=== PATIENT | male | born 1990 | race Caucasian/White ===

== ENCOUNTER → 2019-04-09 12:03 | Outpatient (CLI) | payer BC, SELFPAY ==
--- NOTE | 2019-04-09 12:15 | CT_ITS ---
PROCEDURE: CT LUMBAR SPINE WO/W CON CLINICAL HISTORY: LBP COMPARISON: No exams were available for comparison TECHNIQUE: Axial images obtained with sagittal and coronal reformats. All CT scans at the facility use one or more dose reduction, viz: automated exposure control, ma/kV adjustment per patient size (including targeted exams where dose is matched to indication, i.e. head), or iterative reconstruction technique. FINDINGS: There is no acute fracture or dislocation. There is broad-based disc bulge L5-S1 with a small component of focal central disc protrusion possibly a tiny herniation. This is causing mild convex extrinsic mass effect on the thecal sac but there is no central canal stenosis. 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 Additionally there is expansion of the bilateral sacral foramina appearing due to perineural cysts. IMPRESSION: Degenerative disc bulge L5-S1 with small focal central disc protrusion likely herniation. No associated central canal or foraminal stenosis. Expansion of bilateral sacral foramina and L5-S1 neural foramina appearing due to perineural cysts. MRI may be useful for further imaging assessment. Dictated by: Venu Dumont 04/09/2019 12:54 Electronically signed by Venu Dumont in [facility] 04/09/2019 12:54
== END ==
PROVIDERS: PCP Nurse Practitioner; Visit Provider Nurse Practitioner
DX: M54.5 Low back pain (principal)
CPT/HCPCS: 72133

== ENCOUNTER 2019-05-04 08:00 | Outpatient (RCR) | payer BC, SELFPAY | END 2019-05-11 15:23 | disposition home or self-care (01) | LOC: PT.CARL 08:00 | PROVIDERS: PCP Nurse Practitioner; Visit Provider Nurse Practitioner | DX: M54.5 Low back pain (principal) | CPT/HCPCS: 97010; 97014; 97110; 97163; G0283 ==